=== PATIENT | male | born 1995 | race Caucasian/White ===

== ENCOUNTER 2019-05-01 19:59 | Emergency (ER) | payer BC, OTHER ==
[2019-05-01 20:27] LABS: Urine Blood NEGATIVE (NEG); Urine Glucose NEGATIVE (NEG); Urine Protein NEGATIVE (NEG); Urine Specific Gravity >1.030 (1.005-1.030)
[2019-05-01 20:45] LABS: Urine Bacteria <20 /HPF (NONE SEEN); Urine Mucus 1+ /HPF (NONE SEEN); Urine RBC <5 /HPF (NONE SEEN)
[2019-05-01] MEDS ORDERED: AZITHROMYCIN 250 MG TAB ONE (22:34)
[2019-05-01] MEDS ORDERED: LIDOCAINE 1% MPF 2 ML AMPULE ONE (22:34)
--- NOTE | 2019-05-01 22:34 | ER ---
Nurse's Notes [facility] Name: Jun Almaraz Age: 23 yrs Sex: Male : 1995 Arrival Date: 05/01/2019 Time: 20:04 Bed 14 Private MD: Diagnosis: Epididymitis Presentation: 04/30 20:14 Chief complaint: Patient states: Right testicular pain and discharges started wh yesterday. Pt states sharp pain radiating to groin area. Pt denies any associated symptoms like fever, nausea or vomiting. Coronavirus screen: Patient denies fever greater than 100.4F, cough, shortness of breath, or difficulty breathing. Proceed with normal triage process. Ebola Screen: Patient negative for fever greater than or equal to 101.5 degrees Fahrenheit, and additional compatible Ebola Virus Disease symptoms Patient denies exposure to infectious person. Initial Sepsis Screen: Does the patient meet any 2 criteria? HR > 90 bpm. Does the patient have a suspected source of infection? No. Patient's initial sepsis screen is negative. Risk Assessment: Do you want to hurt yourself or someone else? Patient reports no desire to harm self or others. 20:14 Method Of Arrival: Ambulatory 20:14 Acuity: LISA 4 20:18 Onset of symptoms was April 30, 2019. Historical: - Allergies: 20:17 No Known Allergies; - Home Meds: 20:17 None [Active]; - PMHx: 20:17 None; - PSHx: 20:17 None; - Immunization history:: Adult Immunizations not up to date. - Social history:: Smoking status: Patient reports the use of cigarette tobacco products, denies chronic smoking, but will smoke occasionally. Screenin:17 Abuse screen: Denies threats or abuse. Denies injuries from another. Nutritional screening: No deficits noted. Tuberculosis screening: No symptoms or risk factors identified. Fall Risk None identified. Assessment: 20:22 General: Appears in no apparent distress. Behavior is calm, cooperative, appropriate for age. Pain: Complains of pain in right testicular pain Pain does not radiate. Pain currently is 8 out of 10 on a pain scale. Quality of pain is described as aching, Pain began 1 day ago. Neuro: Level of Consciousness is awake, alert, obeys commands, Oriented to person, place, time, situation, Appropriate for age. Cardiovascular: Capillary refill < 3 seconds. Respiratory: Airway is patent Respiratory effort is even, unlabored, Respiratory pattern is regular, symmetrical. GI: Abdomen is flat, non-distended. : Reports discharge, pain in right scrotum. EENT: No signs and/or symptoms were reported regarding the EENT system. Derm: Skin is intact, is healthy with good turgor, Skin is pink, warm \T\ dry. normal. Musculoskeletal: Circulation, motion, and sensation intact. 21:24 Reassessment: Patient appears in no apparent distress at this time. No changes from rr5 previously documented assessment. Patient is alert, oriented x 3, equal unlabored respirations, skin warm/dry/pink. ultrasound at bedside. 22:50 Reassessment: Patient appears in no apparent distress at this time. Patient is alert, rr5 oriented x 3, equal unlabored respirations, skin warm/dry/pink. discharge instruction given and explained without complaints made. Vital Signs: 20:14 BP 158 / 110; Pulse 129; Resp 18; Temp 99.4; Pulse Ox 100% ; Weight 58.97 kg; Height 5 wh ft. 6 in. (167.64 cm); Pain 8/10; 21:20 BP 137 / 94; Pulse 118; Resp 19; Pulse Ox 98% ; rr5 22:40 BP 121 / 75; Pulse 102; Resp 18; Temp 97.9; Pulse Ox 99% on R/A; rr5 20:14 Body Mass Index 20.98 (58.97 kg, 167.64 cm) ED Course: 20:04 Patient arrived in ED. es 20:08 Tommy Sharpe NP is PHCP. pm1 20:08 Arthur Spann MD is Attending Physician. pm1 20:11 Jordan Alarcon, DAKOTA is Primary Nurse. rr5 20:17 Triage completed. wh 20:18 Patient has correct armband on for positive identification. Bed in low position. Call light in reach. Side rails up X 1. Pulse ox on. NIBP on. 20:18 Arm band placed on right wrist. wh 21:28 US Scrotum Testicles In Process Unspecified. EDMS 22:51 No provider procedures requiring assistance completed. Patient did not have IV access rr5 during this emergency room visit. Administered Medications: 22:27 Drug: Zithromax 1 grams Route: PO; rr5 22:50 Follow up: Response: No adverse reaction rr5 22:27 Drug: Tylenol #3 (300 mg-30 mg) 1 tablet {Note: rass 0.} Route: PO; rr5 22:50 Follow up: Response: No adverse reaction; Pain is decreased; RASS: Alert and Calm (0) rr5 22:28 Drug: Rocephin (cefTRIAXone) 250 mg Route: IM; Site: right gluteus; rr5 22:50 Follow up: Response: No adverse reaction rr5 22:46 CANCELLED (Other Intervention Used): Tylenol #3 (300 mg-30 mg) 2 tabs PO once; RASS on rr5 ADMIN: Combtv4, Very Agttd3, Agttd2, Rstlss1, AlertClm0, Drwsy-1, Lt Sdtn-2, Mod Sdtn-3, Dp Sdtn-4, UnArsble-5 Outcome: 22:34 Discharge ordered by MD. pm1 22:51 Discharged to home ambulatory. rr5 22:51 Condition: stable 22:51 Discharge instructions given to patient, Instructed on discharge instructions, Demonstrated understanding of instructions, follow-up care, medications. 22:52 Patient left the ED. rr5 Signatures: Dispatcher [employer] Patricia Cruz Patrick, RUSSIAN HISTORY PROFESSOR RUSSIAN HISTORY PROFESSOR pm1 Bhumi Stock Raymond, RN RN rr5 Corrections: (The following items were deleted from the chart) 20:18 20:14 BP 158 / 110; Pulse 129bpm; Resp 18bpm; Pulse Ox 100%; Temp 98.9F; 58.97 kg; wh Height 5 ft. 6 in.; BMI: 20.9; Pain 8/10; wh
--- NOTE | 2019-05-01 22:34 | EDPHYS ---
Physician Documentation [facility] Name: Jun Almaraz Age: 23 yrs Sex: Male : 1995 Arrival Date: 05/01/2019 Time: 20:04 Bed 14 Private MD: MARIA DEL CARMEN Physician Arthur Spann HPI: 04/30 20:20 This 23 yrs old Male presents to ER via Ambulatory with complaints of Groin pm1 Pain. 20:20 The patient presents with scrotal pain, in the area of the epidydimis. pm1 20:20 Onset: The symptoms/episode began/occurred yesterday. Modifying factors: The symptoms pm1 are alleviated by remaining still, sitting, the symptoms are aggravated by standing up. Associated signs and symptoms: Pertinent positives: whitish penile discharge yesterday. None today. No burning with urination, Pertinent negatives: abdominal pain, fever. Severity of symptoms: in the emergency department the symptoms have improved. The patient has not experienced similar symptoms in the past. The patient has not recently seen a physician. No trauma. Historical: - Allergies: 20:17 No Known Allergies; - Home Meds: 20:17 None [Active]; - PMHx: 20:17 None; - PSHx: 20:17 None; - Immunization history:: Adult Immunizations not up to date. - Social history:: Smoking status: Patient reports the use of cigarette tobacco products, denies chronic smoking, but will smoke occasionally. ROS: 20:20 Constitutional: Negative for fever, chills, and weight loss, Neck: Negative for injury, pm1 pain, and swelling, Cardiovascular: Negative for chest pain, palpitations, and edema, Respiratory: Negative for shortness of breath, cough, wheezing, and pleuritic chest pain, Abdomen/GI: Negative for abdominal pain, nausea, vomiting, diarrhea, and constipation, Back: Negative for injury and pain. 20:20 MS/Extremity: Negative for injury and deformity, Skin: Negative for injury, rash, and discoloration. 20:20 Neuro: Negative for headache, weakness, numbness, tingling, and seizure. 20:20 : Positive for penile discharge, testicular pain Negative for burning with urination, penile pain. Exam: 20:20 Constitutional: This is a well developed, well nourished patient who is awake, alert, pm1 and in no acute distress. Head/Face: Normocephalic, atraumatic. Chest/axilla: Normal chest wall appearance and motion. Nontender with no deformity. No lesions are appreciated. Cardiovascular: Regular rate and rhythm with a normal S1 and S2. No gallops, murmurs, or rubs. Normal PMI, no JVD. No pulse deficits. Respiratory: Lungs have equal breath sounds bilaterally, clear to auscultation and percussion. No rales, rhonchi or wheezes noted. No increased work of breathing, no retractions or nasal flaring. 20:20 Back: No spinal tenderness. No costovertebral tenderness. Full range of motion. 20:20 Abdomen/GI: Inspection: abdomen appears normal, Bowel sounds: normal, Palpation: abdomen is soft and non-tender, in all quadrants, mass, is not appreciated, rebound tenderness, is not appreciated. 20:20 : Male external genitalia: Circumcision noted. tenderness, of the scrotum is noted, of the epididymis area, that is mild. Vital Signs: 20:14 BP 158 / 110; Pulse 129; Resp 18; Temp 99.4; Pulse Ox 100% ; Weight 58.97 kg; Height 5 wh ft. 6 in. (167.64 cm); Pain 8/10; 21:20 BP 137 / 94; Pulse 118; Resp 19; Pulse Ox 98% ; rr5 22:40 BP 121 / 75; Pulse 102; Resp 18; Temp 97.9; Pulse Ox 99% on R/A; rr5 20:14 Body Mass Index 20.98 (58.97 kg, 167.64 cm) MDM: 20:08 Patient medically screened. pm1 22:33 Data reviewed: vital signs. Data interpreted: Pulse oximetry: on room air is 98 %. pm1 Interpretation: normal. Counseling: I had a detailed discussion with the patient and/or guardian regarding: the historical points, exam findings, and any diagnostic results supporting the discharge/admit diagnosis, lab results, radiology results, the need for outpatient follow up, for definitive care, a urologist, to return to the emergency department if symptoms worsen or persist or if there are any questions or concerns that arise at home. 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 No patient prescription data exists. pm1 04/30 20:20 Order name: Urine Microscopic Only; Complete Time: 20:46 pm1 04/30 20:26 Order name: Urine Dipstick--Ancillary (enter results); Complete Time: 20:46 mw2 04/30 20:20 Order name: US Scrotum Testicles pm1 04/30 20:20 Order name: Urine Dipstick-Ancillary (obtain specimen); Complete Time: 20:25 pm1 Administered Medications: 22:27 Drug: Zithromax 1 grams Route: PO; rr5 22:50 Follow up: Response: No adverse reaction rr5 22:27 Drug: Tylenol #3 (300 mg-30 mg) 1 tablet {Note: rass 0.} Route: PO; rr5 22:50 Follow up: Response: No adverse reaction; Pain is decreased; RASS: Alert and Calm (0) rr5 22:28 Drug: Rocephin (cefTRIAXone) 250 mg Route: IM; Site: right gluteus; rr5 22:50 Follow up: Response: No adverse reaction rr5 22:46 CANCELLED (Other Intervention Used): Tylenol #3 (300 mg-30 mg) 2 tabs PO once; RASS on rr5 ADMIN: Combtv4, Very Agttd3, Agttd2, Rstlss1, AlertClm0, Drwsy-1, Lt Sdtn-2, Mod Sdtn-3, Dp Sdtn-4, UnArsble-5 Disposition: 05/01 18:05 Co-signature as Attending Physician, Arthur Spann MD I agree with the assessment and galo plan of care. Disposition: 05/01/19 22:34 Discharged to Home. Impression: Epididymitis. - Condition is Stable. - Discharge Instructions: Epididymitis, Scrotal Masses, Testicular Self-Exam, Luov-es-Syrp. - Prescriptions for Tylenol- Codeine #3 300-30 mg Oral Tablet - take 2 tablets by ORAL route every 6 hours As needed; 20 tablet. - Medication Reconciliation Form, Thank You Letter, Antibiotic Education, Prescription Opioid Use form. - Follow up: Emergency Department; When: As needed; Reason: Worsening of condition. Follow up: Private Physician; When: 2 - 3 days; Reason: Recheck today's complaints, Continuance of care, Re-evaluation by your physician. - Problem is new. - Symptoms have improved. Signatures: Dispatcher [employer] EDArthur Osman MD MD cha Marinas, Patrick, RIVET SORTER RIVET SORTER pm1 Bhumi Stock Raymond, RN RN rr5 Corrections: (The following items were deleted from the chart) 04/30 22:46 22:26 Tylenol #3 (300 mg-30 mg) 2 tabs PO once; RASS on ADMIN: Combtv4, Very Agttd3, rr5 Agttd2, Rstlss1, AlertClm0, Drwsy-1, Lt Sdtn-2, Mod Sdtn-3, Dp Sdtn-4, UnArsble-5 ordered. pm1 22:52 22:34 05/01/2019 22:34 Discharged to Home. Impression: Epididymitis. Condition is rr5 Stable. Forms are Medication Reconciliation Form, Thank You Letter, Antibiotic Education, Prescription Opioid Use. Follow up: Emergency Department; When: As needed; Reason: Worsening of condition. Follow up: Private Physician; When: 2 - 3 days; Reason: Recheck today's complaints, Continuance of care, Re-evaluation by your physician. Problem is new. Symptoms have improved. pm1
[2019-05-01] MEDS ORDERED: CODEINE 30MG/APAP 300MG TAB ONE (22:35)
[2019-05-01] MEDS ORDERED: CEFTRIAXONE 250 MG/VIAL ONE (22:35)
[2019-05-01 23:04] VITALS: BP 121/75; TEMP 97.9; O2SAT 99
--- NOTE | 2019-05-02 20:57 | RAD REPORT ---
EXAM DESCRIPTION: US - Scrotum Testicles - 05/01/2019 9:28 pm CLINICAL HISTORY: 23 years Male Scrotal pain TECHNIQUE: Ultrasound of the scrotum was done utilizing grayscale and color Doppler imaging. COMPARISON: No prior exams provided for comparison. FINDINGS: Both testicles are normal in size without focal abnormality. The right testicle measures 3 .5 x 1.8 x 2.9 cm while the left measures 4.6 x 1.9 x 3.0 cm. The epididymi appear normal bilaterally. Color doppler demonstrates normal vascularity in both testic les and epididymi. There is no evidence of varicocele or abnormal extratesticular fluid. IMPRESSION: Normal scrotal ultrasound. No testicular torsion, focal lesion, or abnormal hyperemia. Electronically signed by: Diana Aden MD 05/02/2019 12:15 AM CDT Due to temporary technical issues with the PACS/Fluency reporting system, reports are being signed by the in house radiologist as a courtesy to ensure prompt reporting. The interpreting radiologist is f ully responsible for the content of the report.
== END 2019-05-01 22:52 | disposition home or self-care (01) ==
LOC: ER 19:59
DX: N45.1 Epididymitis (principal); F17.210 Nicotine dependence, cigarettes, uncomplicated
CPT/HCPCS: 76870; 96372; 99283; J2001; J0696; 81003; 81015

== ENCOUNTER 2019-05-07 19:22 | Emergency (ER) | payer BC ==
[2019-05-07 20:17] LABS: Urine Blood NEGATIVE (NEG); Urine Glucose NEGATIVE (NEG); Urine Protein NEGATIVE (NEG)
--- NOTE | 2019-05-07 20:18 | RAD REPORT ---
EXAM DESCRIPTION: CT - Stone Protocol - 05/07/2019 8:06 pm CLINICAL HISTORY: Abdominal pain. Groin pain COMPARISON: None. TECHNIQUE: Computed axial tomography of the abdomen pelvis was obtained without oral or IV contrast. Lack of IV and oral contrast limits evaluation of solid organs, bowel, and vessels. Coronal reformat lala images were obtained and reviewed. All CT scans are performed using dose optimization technique as appropriate and may include automated exposure control or mA/KV adjustment according to patient size. FINDINGS: A renal calculus is not seen. An ureteral calculus is not noted. A bladder calculus is not present. The liver, spleen, pancreas and adrenals appear grossly normal There is no evidence of diverticulitis. The appendix appears normal An inguinal hernia is not seen The stomach is mildly distended. Moderate amount stool is present throughout the colon IMPRESSION: Negative for a genitourinary calculus Stomach is mildly distended
[2019-05-07 20:23] LABS: Urine Bacteria <20 /HPF (NONE SEEN); Urine Culture Reflex Order NOT NEEDED; Urine Mucus 1+ /HPF (NONE SEEN); Urine RBC <5 /HPF (NONE SEEN)
--- NOTE | 2019-05-07 21:07 | ER ---
Nurse's Notes [facility] Name: Jun Almaraz Age: 23 yrs Sex: Male : 1995 Arrival Date: 05/07/2019 Time: 19:25 Bed 17 Private MD: Diagnosis: Urethritis and urethral syndrome Presentation: 05/06 19:32 Chief complaint: Patient states: penile issues, same as Friday. I cant follow up with a pcp, the pain is slightly better but i think I need an antibitotic. Coronavirus screen: Patient denies fever greater than 100.4F, cough, shortness of breath, or difficulty breathing. Ebola Screen: Patient negative for fever greater than or equal to 101.5 degrees Fahrenheit, and additional compatible Ebola Virus Disease symptoms Patient denies exposure to infectious person. Patient denies travel to an Ebola-affected area in the 21 days before illness onset. No symptoms or risks identified at this time. Initial Sepsis Screen: Does the patient meet any 2 criteria? No. Patient's initial sepsis screen is negative. Does the patient have a suspected source of infection? No. Patient's initial sepsis screen is negative. Risk Assessment: Do you want to hurt yourself or someone else? Patient reports no desire to harm self or others. 19:32 Method Of Arrival: Ambulatory 19:32 Acuity: LISA 4 19:57 Onset of symptoms was April 29, 2019. ae4 Triage Assessment: 19:34 General: Appears in no apparent distress. uncomfortable, Behavior is cooperative, ch appropriate for age. Pain: Complains of pain in pelvis. Historical: - Allergies: 19:34 No Known Allergies; - Home Meds: 19:34 Tylenol #3 Oral [Active]; - PSHx: 19:34 None; - Immunization history:: Adult Immunizations up to date, Flu vaccine is not up to date. - Social history:: Smoking status: Patient reports the use of cigarette tobacco products. Screenin:57 Abuse screen: Denies threats or abuse. Nutritional screening: No deficits noted. ae4 Tuberculosis screening: No symptoms or risk factors identified. Fall Risk None identified. Assessment: 19:47 General: Appears in no apparent distress. uncomfortable, slender, Behavior is ae4 cooperative, anxious. Pain: Complains of pain in suprapubic area. Neuro: Level of Consciousness is awake, alert, obeys commands, Oriented to person, place, time, situation, Appropriate for age. Cardiovascular: Patient's skin is warm and dry. Respiratory: Airway is patent Respiratory effort is even, unlabored, Respiratory pattern is regular, symmetrical. GI: No signs and/or symptoms were reported involving the gastrointestinal system. Patient currently denies diarrhea, nausea. : Reports discharge, white, Denies burning with urination. EENT: No signs and/or symptoms were reported regarding the EENT system. Derm: Skin is pink, warm \T\ dry. Musculoskeletal: No signs and/or symptoms reported regarding the musculoskeletal system. Vital Signs: 19:32 BP 159 / 101; Pulse 100; Resp 16; Temp 98.3; Pulse Ox 100% on R/A; Weight 58.97 kg; ch Height 5 ft. 6 in. (167.64 cm); Pain 8/10; 20:41 BP 122 / 79; Pulse 94; Resp 18; Pulse Ox 100% on R/A; ae4 19:32 Body Mass Index 20.98 (58.97 kg, 167.64 cm) ED Course: 19:25 Patient arrived in ED. cl3 19:29 Luc Wood, [place] is Primary Nurse. ae4 19:33 Triage completed. 19:34 Arm band placed on left wrist. Patient placed in an exam room, on a stretcher. 19:48 Ericka Perez FNP-C is [facility]. 19:48 Guicho Reyna MD is Attending Physician. kb 19:56 Bed in low position. Call light in reach. Side rails up X 1. Pulse ox on. ae4 20:07 CT Stone Protocol In Process Unspecified. EDMS 21:15 No provider procedures requiring assistance completed. Patient did not have IV access ae4 during this emergency room visit. Administered Medications: No medications were administered Outcome: 21:07 Discharge ordered by . kb 21:15 Discharged to home ambulatory. ae4 21:15 Condition: stable 21:15 Discharge instructions given to patient, Instructed on discharge instructions, follow up and referral plans. medication usage, Demonstrated understanding of instructions, Prescriptions given X 1. 21:16 Patient left the ED. ae4 Signatures: Dispatcher [employer] EDLA Ericka Perez FNP-C FNP-Dariusb Beryl Ruiz, RN RN ch Luc Wood RN RN ae4 Nikki Pineda cl3
--- NOTE | 2019-05-07 21:07 | EDPHYS ---
Physician Documentation [facility] Name: Jun Almaraz Age: 23 yrs Sex: Male : 1995 Arrival Date: 05/07/2019 Time: 19:25 Bed 17 Private MD: ED Physician Guicho Reyna HPI: 05/06 20:55 This 23 yrs old Male presents to ER via Ambulatory with complaints of Penile kb Pain. 20:55 The patient presents with symptoms include purulent penile discharge, tenderness, that kb is mild, of the right inguinal area. Onset: The symptoms/episode began/occurred 1 week(s) ago. Modifying factors: The symptoms are alleviated by nothing, the symptoms are aggravated by nothing. Associated signs and symptoms: The patient has no apparent associated signs or symptoms. Severity of symptoms: At their worst the symptoms were mild, in the emergency department the symptoms are unchanged. The patient has not experienced similar symptoms in the past. The patient has been recently seen at the [facility] Emergency Department, this week, for similar complaints. Pt reports he was seen last week and given 4 pills and a shot. States he felt a little better, but the symptoms came back. Reports penile drainage intermittently. Denies dysuria, testicular pain. . Historical: - Allergies: 19:34 No Known Allergies; ch - Home Meds: 19:34 Tylenol #3 Oral [Active]; ch - PSHx: 19:34 None; ch - Immunization history:: Adult Immunizations up to date, Flu vaccine is not up to date. - Social history:: Smoking status: Patient reports the use of cigarette tobacco products. ROS: 20:49 Constitutional: Negative for fever, chills, and weight loss, ENT: Negative for injury, kb pain, and discharge, Neck: Negative for injury, pain, and swelling, Cardiovascular: Negative for chest pain, palpitations, and edema, Respiratory: Negative for shortness of breath, cough, wheezing, and pleuritic chest pain, Abdomen/GI: Negative for abdominal pain, nausea, vomiting, diarrhea, and constipation, MS/Extremity: Negative for injury and deformity, Skin: Negative for injury, rash, and discoloration, Neuro: Negative for headache, weakness, numbness, tingling, and seizure. 20:49 : Positive for penile discharge, Negative for burning with urination, penile pain, testicular pain Exam: 20:52 Constitutional: This is a well developed, well nourished patient who is awake, alert, kb and in no acute distress. Head/Face: Normocephalic, atraumatic. ENT: Nares patent. No nasal discharge, no septal abnormalities noted. Tympanic membranes are normal and external auditory canals are clear. Oropharynx with no redness, swelling, or masses, exudates, or evidence of obstruction, uvula midline. Mucous membranes moist. Neck: Trachea midline, no thyromegaly or masses palpated, and no cervical lymphadenopathy. Supple, full range of motion without nuchal rigidity, or vertebral point tenderness. No Meningismus. Chest/axilla: Normal chest wall appearance and motion. Nontender with no deformity. No lesions are appreciated. Cardiovascular: Regular rate and rhythm with a normal S1 and S2. No gallops, murmurs, or rubs. Normal PMI, no JVD. No pulse deficits. Respiratory: Lungs have equal breath sounds bilaterally, clear to auscultation and percussion. No rales, rhonchi or wheezes noted. No increased work of breathing, no retractions or nasal flaring. Back: No spinal tenderness. No costovertebral tenderness. Full range of motion. Skin: Warm, dry with normal turgor. Normal color with no rashes, no lesions, and no evidence of cellulitis. MS/ Extremity: Pulses equal, no cyanosis. Neurovascular intact. Full, normal range of motion. Neuro: Awake and alert, GCS 15, oriented to person, place, time, and situation. Cranial nerves II-XII grossly intact. Motor strength 5/5 in all extremities. Sensory grossly intact. Cerebellar exam normal. Normal gait. 20:52 Abdomen/GI: Inspection: abdomen appears normal, Bowel sounds: normal, in all quadrants, Palpation: mild tenderness to right groin area. 20:54 : no testicular pain. kb Vital Signs: 19:32 BP 159 / 101; Pulse 100; Resp 16; Temp 98.3; Pulse Ox 100% on R/A; Weight 58.97 kg; ch Height 5 ft. 6 in. (167.64 cm); Pain 8/10; 20:41 BP 122 / 79; Pulse 94; Resp 18; Pulse Ox 100% on R/A; ae4 19:32 Body Mass Index 20.98 (58.97 kg, 167.64 cm) MDM: 19:48 Patient medically screened. kb 20:48 Data reviewed: vital signs, nurses notes. Data interpreted: Pulse oximetry: on room air kb is 100 %. Interpretation: normal. Counseling: I had a detailed discussion with the patient and/or guardian regarding: the historical points, exam findings, and any diagnostic results supporting the discharge/admit diagnosis, lab results, radiology results, the need for outpatient follow up, a family practitioner, to return to the emergency department if symptoms worsen or persist or if there are any questions or concerns that arise at home. 20:54 Data reviewed: old medical records, Testicular US done 6 days ago and was normal. Pt kb denies testicular pain. 05/06 19:52 Order name: Urine Microscopic Only; Complete Time: 20:24 kb 05/06 20:11 Order name: Urine Dipstick--Ancillary (enter results); Complete Time: 20:19 cm6 05/06 19:52 Order name: CT Stone Protocol; Complete Time: 20:20 kb 05/06 19:52 Order name: Urine Dipstick-Ancillary (obtain specimen); Complete Time: 19:58 kb Administered Medications: No medications were administered Disposition: 05/07 02:09 Co-signature as Attending Physician, Guicho Reyna MD. ma2 Disposition: 05/07/19 21:07 Discharged to Home. Impression: Urethritis and urethral syndrome. - Condition is Stable. - Discharge Instructions: Urethritis, Adult. - Prescriptions for Doxycycline Hyclate 100 mg Oral Tablet - take 1 tablet by ORAL route every 12 hours; 20 tablet. - Medication Reconciliation Form, Thank You Letter, Antibiotic Education, Prescription Opioid Use form. - Follow up: Emergency Department; When: As needed; Reason: Worsening of condition. Follow up: Private Physician; When: 2 - 3 days; Reason: Recheck today's complaints, Continuance of care, Re-evaluation by your physician. Signatures: Dispatcher [employer] Ericka Linares, Beryl Guerin RN RN Guicho Reyna MD MD ma2 Luc Wood RN RN ae4 Corrections: (The following items were deleted from the chart) 05/06 20:52 20:49 : Positive for penile discharge, kb kb 21:16 21:07 05/07/2019 21:07 Discharged to Home. Impression: Urethritis and urethral ae4 syndrome. Condition is Stable. Forms are Medication Reconciliation Form, Thank You Letter, Antibiotic Education, Prescription Opioid Use. Follow up: Emergency Department; When: As needed; Reason: Worsening of condition. Follow up: Private Physician; When: 2 - 3 days; Reason: Recheck today's complaints, Continuance of care, Re-evaluation by your physician. kb
[2019-05-07 21:30] VITALS: TEMP 98.3; O2SAT 100
[2019-05-07 21:31] VITALS: BP 122/79
== END 2019-05-07 21:16 | disposition home or self-care (01) ==
LOC: ER 19:22
DX: N34.2 Other urethritis (principal)
CPT/HCPCS: 74176; 76377; 81003; 81015; 99283

== ENCOUNTER 2024-01-03 19:22 | Emergency (ER) | payer BC, OTHER, SELFPAY ==
[2024-01-03] MEDS ORDERED: NA CHLORIDE 0.9% 1,000 ML ONE (19:35)
[2024-01-03 19:43] LABS: Absolute Lymphocytes (CBC) 0.9 K/uL (0.7-4.9); Absolute Monocytes 0.9 K/uL (0.1-1.3); Absolute Neutrophil 16.1 K/uL (1.8-8.0); Basophils % 0.2 % (0-1.3); Eosinophils % 0.2 % (0-4.4); Hematocrit 50.3 % (39.6-49.0); Hemoglobin 16.8 g/dL (13.6-17.9); Lymphocytes % 5.1 % (15.3-44.8); MCH 29.9 pg (27.0-35.0); MCHC 33.3 g/dL (32.0-36.0); MCV 89.7 fL (80-100); Monocytes % 5.1 % (3.3-12.3); Neutrophils % 89.4 % (41.7-73.7); Nucleated Red Blood Cells % 0.1 % (0-0); Platelets 310 thou/uL (152-406); RBC Red Blood Cell Count 5.61 M/uL (4.33-5.43); Red Cell Distribution Width 13.6 % (12.1-15.2)
[2024-01-03 20:00] LABS: Albumin 4.6 g/dL (3.4-5.0); Albumin/Globulin Ratio 1.2 (1.1-1.8); Anion Gap 8.9 mEq/L (5.0-15.0); Bilirubin Total 0.4 mg/dL (0.2-1.0); Globulin 3.9 g/dL (2.3-3.5); Potassium 3.9 mEq/L (3.5-5.1); Protein, Total 8.5 g/dL (6.4-8.2)
[2024-01-03 20:26] LABS: Band Neutrophils 2 % (0-1); Differential Total Cells Count 100; Lymphocytes 10 % (15-42); Monocytes 3 % (0-10); Segmented Neutrophils 85 % (40-80)
[2024-01-03 20:28] LABS: Blood Morphology Comment NOT SEEN (NOT SEEN); Platelet Estimate ADEQ
[2024-01-03 21:06] LABS: SARS-CoV-2 Antigen CONTROL BLUE LINE VIS/BG OK; SARS-CoV-2 Antigen Rapid Res Negative (Negative)
--- NOTE | 2024-01-03 21:37 | RAD REPORT ---
EXAMINATION: CT Abdomen Pelvis W Contrast CLINICAL INDICATION: Male, 28 years old. n/v/d;Abd pain TECHNIQUE: CT abdomen and pelvis was performed, after the administration of IV contrast, as per [facility] protocol. Axial, sagittal and coronal reconstructions were obtained. One or more of the following dose reduction techniques were used: Automated exposure control, adjustment of the mA and k V according to patient size, and iterative reconstruction. Unless otherwise specified, incidental findings do not require dedicated imaging follow-up. COMPARISON: 05/07/2019 FINDINGS: LOWER CHEST: The visualized lung bases are clear. LIVER: Normal in size and contour. No focal lesion. BILIARY SYSTEM: No suspicious abnormalities. SPLEEN: Normal size. No focal lesion. PANCREAS: No mass, ductal dilation, or gabriela-pancreatic fluid. ADRENALS: Normal; no mass. KIDNEYS: Normal size and contour. No hydronephrosis. URINARY BLADDER: Unremarkable. GASTROINTESTINAL TRACT: No evidence of free air, significant intra-abdominal free fluid, bowel obstru ction or abscess. Long segment mild wall prominence involving most of the transverse and descending colon, may relate to underdistention or mild colitis. APPENDIX: Normal appendix. LYMPH NODES: No lymphadenopathy. MUSCULOSKELETAL: No acute or suspicious osseous abnormality. ADDITIONAL FINDINGS: None. IMPRESSION: Long segment mild wall prominence involving most of the transverse and descending colon, may relate t o underdistention or mild colitis. No other acute or concerning abnormalities seen in the abdomen or pelvis.
[2024-01-03] MEDS ORDERED: METRONIDAZOLE 500mg IVPB 500 MG/100 ML BAG IV ONE (22:06)
[2024-01-03] MEDS ORDERED: CEFTRIAXONE 1000 MG/VIAL ONE (22:06)
[2024-01-03 22:23] LABS: PT Prothrombin Time 11.2 SECONDS (9.4-12.5)
--- NOTE | 2024-01-03 22:42 | ER ---
Nurse's Notes [facility] Name: Jun Almaraz Age: 28 yrs Sex: Male : 1995 Arrival Date: 01/03/2024 Time: 19:22 Bed 7 Private MD: Diagnosis: Infectious gastroenteritis and colitis, unspecified Presentation: 01/02 19:25 Chief complaint: Patient states: I think I may have food poisoning. I have NVD for 12 bm8 hours. Coronavirus screen: At this time, the client does not indicate any symptoms associated with coronavirus-19. Ebola Screen: Patient negative for fever greater than or equal to 101.5 degrees Fahrenheit, and additional compatible Ebola Virus Disease symptoms Patient denies exposure to infectious person. Patient denies travel to an Ebola-affected area in the 21 days before illness onset. No symptoms or risks identified at this time. Initial Sepsis Screen: Does the patient meet any 2 criteria? No. Patient's initial sepsis screen is negative. Does the patient have a suspected source of infection? No. Patient's initial sepsis screen is negative. Risk Assessment: Do you want to hurt yourself or someone else? Patient reports no desire to harm self or others. Onset of symptoms was January 03, 2024 at 07:00. 19:25 Method Of Arrival: EMS: [facility] bm8 19:25 Acuity: LISA 3 bm8 19:54 Care prior to arrival: Medication(s) given: Reglan 10mg IV IV initiated. 20 GA, in the bm8 right antecubital area. Triage Assessment: 19:27 General: Appears in no apparent distress. comfortable, Behavior is calm, cooperative, bm8 appropriate for age. Pain: Complains of pain in abdomen. EENT: No deficits noted. No signs and/or symptoms were reported regarding the EENT system. Neuro: No deficits noted. Level of Consciousness is awake, alert, obeys commands, Oriented to person, place, time, situation, Appropriate for age. Cardiovascular: No deficits noted. Denies chest pain, Heart tones S1 S2 present. Respiratory: Airway is patent Respiratory effort is even, unlabored, Respiratory pattern is regular, symmetrical, Breath sounds are clear bilaterally. GI: Abdomen is flat, non-distended, Bowel sounds present X 4 quads. Reports lower abdominal pain, upper abdominal pain, diarrhea, nausea, Pain is 3 out of 10 on a pain scale. vomiting, since 0700. : No signs and/or symptoms were reported regarding the genitourinary system. Derm: No signs and/or symptoms reported regarding the dermatologic system. Musculoskeletal: No signs and/or symptoms reported regarding the musculoskeletal system. Historical: - Allergies: 19:27 No Known Allergies; bm8 - PMHx: 19:27 None; bm8 - PSHx: 19:27 None; bm8 - Immunization history:: Adult Immunizations up to date. - Infectious Disease History:: Denies. - Social history:: Smoking status: Patient denies any tobacco usage or history of. Patient uses street drugs, marijuana, Patient/guardian denies using alcohol. Screenin:30 [facility] ED Fall Risk Assessment (Adult) History of falling in the last 3 months, bm8 including since admission No falls in past 3 months (0 pts) Confusion or Disorientation No (0 pts) Intoxicated or Sedated No (0 pts) Impaired Gait No (0 pts) Mobility Assist Device Used No (0 pt) Altered Elimination No (0 pt) Score/Fall Risk Level 0 - 2 = Low Risk Oriented to surroundings, Maintained a safe environment, Educated pt \T\ family on fall prevention, incl call for assistance when getting out of bed, Assessed \T\ reinforced patient's understanding of fall precautions, Hourly rounding (assess needs \T\ fall precautionary measures) done, Used ambulatory aids as needed (educated on \T\ assisted with), Used gait belt as appropriate. Abuse screen: Denies threats or abuse. Nutritional screening: No deficits noted. Tuberculosis screening: No symptoms or risk factors identified. Assessment: 19:30 Reassessment: see triage assessment. bm8 20:34 Reassessment: Patient appears in no apparent distress at this time. Patient and/or bm8 family updated on plan of care and expected duration. Pain level reassessed. Patient is alert, oriented x 3, equal unlabored respirations, skin warm/dry/pink. Patient states feeling better. Patient states symptoms have improved. GI: Abdomen is flat, non-distended, Bowel sounds present X 4 quads. Abd is soft and non tender Patient currently denies nausea, at this time. 22:24 Reassessment: Patient appears in no apparent distress at this time. Patient and/or bm8 family updated on plan of care and expected duration. Pain level reassessed. Patient is alert, oriented x 3, equal unlabored respirations, skin warm/dry/pink. Patient states feeling better. Patient states symptoms have improved. 23:05 Reassessment: Patient appears in no apparent distress at this time. Patient and/or bm8 family updated on plan of care and expected duration. Pain level reassessed. Patient is alert, oriented x 3, equal unlabored respirations, skin warm/dry/pink. Patient denies pain at this time. Patient states feeling better. Patient states symptoms have improved. Vital Signs: 19:25 BP 142 / 97; Pulse 84; Resp 17; Temp 99.1; Pulse Ox 100% ; Weight 61.23 kg; Height 5 bm8 ft. 6 in. ; Pain 3/10; 20:39 BP 137 / 86; Pulse 93; Resp 18; Temp 99.1; Pulse Ox 98% ; Pain 0/10; bm8 22:24 BP 136 / 91; Pulse 91; Resp 18; Temp 98.9; Pulse Ox 100% ; Pain 0/10; bm8 23:05 BP 118 / 76; Pulse 87; Resp 17; Temp 98.9; Pulse Ox 100% ; Pain 0/10; bm8 19:25 Body Mass Index 21.79 (61.23 kg, 167.64 cm) bm8 19:25 Pain Scale: Adult bm8 20:39 Pain Scale: Adult bm8 22:24 Pain Scale: Adult bm8 23:05 Pain Scale: Adult bm8 Roberta Coma Score: 19:30 Eye Response: spontaneous(4). Motor Response: obeys commands(6). Verbal Response: bm8 oriented(5). Total: 15. 20:39 Eye Response: spontaneous(4). Motor Response: obeys commands(6). Verbal Response: bm8 oriented(5). Total: 15. 22:24 Eye Response: spontaneous(4). Motor Response: obeys commands(6). Verbal Response: bm8 oriented(5). Total: 15. 23:05 Eye Response: spontaneous(4). Motor Response: obeys commands(6). Verbal Response: bm8 oriented(5). Total: 15. ED Course: 19:23 Patient arrived in ED. rv1 19:24 Jeffery Durant MD is Attending Physician. rt 19:25 Jun Mtz, RN is Primary Nurse. bm8 19:26 [facility] sb4 19:27 Triage completed. bm8 19:27 Arm band placed on right wrist. bm8 19:30 Patient has correct armband on for positive identification. Bed in low position. Call bm8 light in reach. Side rails up X2. Client placed on continuous cardiac and pulse oximetry monitoring. NIBP monitoring applied. Pulse ox on. NIBP on. Door closed. Noise minimized. Warm blanket given. Pillow given. Verbal reassurance given. Head of bed elevated. 19:30 No provider procedures requiring assistance completed. Initial lab(s) drawn, by ED bm8 staff, sent to lab. Maintain EMS IV. Dressing intact. Good blood return noted. Site clean \T\ dry. Gauge \T\ site: 20g RAC. Flushed with 10 mL NS. Patient maintains SpO2 saturation greater than 95% on room air. 19:38 CBC with Diff Sent. vk 19:38 CMP Sent. vk 19:38 Lipase Sent. vk 20:39 COVID swab sent to lab. Flu and/or RSV swab sent to lab. bm8 20:49 CT Abd/Pelvis - IV Contrast Only In Process Unspecified. EDMS 22:10 Inserted saline lock: 22 gauge in right hand, using aseptic technique. Blood collected. vk Flushed with 10 mL NS. 23:05 Provided Education on: post er care. bm8 23:05 IV discontinued, intact, bleeding controlled, No redness/swelling at site. Pressure bm8 dressing applied, x2. Administered Medications: 19:37 Drug: NS 0.9% IV 1000 ml IV at 1 bolus Per protocol; to be given as a bolus over 60 bm8 minutes Route: IV; Rate: 1 bolus; Site: right antecubital; 21:48 Follow up: Response: No adverse reaction; IV Status: Completed infusion; IV Intake: bm8 1000ml 22:23 Drug: metroNIDAZOLE IVPB 500 mg 100 ml IVPB at 200 ml/hr once over 30 mins Volume: 100 bm8 ml; Route: IVPB; Rate: 200 ml/hr; Infused Over: 30 mins; Site: right antecubital; 23:30 Follow up: Response: No adverse reaction; IV Status: Completed infusion; IV Intake: bm8 100ml 22:24 Drug: Rocephin IV 1 grams IV at calculated rate once; Given slow IV push per pharmacy bm8 instructions Route: IV; Rate: calculated rate; Site: right antecubital; 23:30 Follow up: Response: No adverse reaction; IV Status: Completed infusion; IV Intake: [id number] Medication: 19:30 VIS not applicable for this client. bm8 Intake: 21:48 IV: 1000ml; Total: 1000ml. bm8 23:30 IV: 100ml; Total: 1100ml. bm8 23:30 IV: 10ml; Total: 1110ml. bm8 Outcome: 22:42 Discharge ordered by . sb4 23:05 Discharged to home ambulatory, bm8 23:05 Condition: stable 23:05 Discharge instructions given to patient, Instructed on discharge instructions, follow up and referral plans. medication usage, safety practices, Demonstrated understanding of instructions, follow-up care, medications, Prescriptions given X 3, 23:08 Patient left the ED. bm8 Signatures: Dispatcher [employer] EDJustine Horton, PA-C PA-C sb4 Jeffery Durant MD MD rt Villegas, Rebecca rv1 Sharlene Smith Brad, RN RN bm8
--- NOTE | 2024-01-03 22:42 | EDPHYS ---
Physician Documentation [facility] Name: Jun Almaraz Age: 28 yrs Sex: Male : 1995 Arrival Date: 01/03/2024 Time: : Bed 7 Private MD: ED Physician Jeffery Durant HPI: 01/02 19:33 This 28 yrs old Male presents to ER via EMS with complaints of Nausea/Vomiting/Diarrhea.sb4 19:33 The patient presents to the emergency department with nausea, vomiting, diarrhea. sb4 Onset: The symptoms/episode began/occurred this morning. Possible causes: bad food exposure. The symptoms are aggravated by nothing. The symptoms are alleviated by nothing. Associated signs and symptoms: Pertinent negatives: fever, GI bleeding. Historical: - Allergies: 19:27 No Known Allergies; bm8 - PMHx: 19:27 None; bm8 - PSHx: 19:27 None; bm8 - Immunization history:: Adult Immunizations up to date. - Infectious Disease History:: Denies. - Social history:: Smoking status: Patient denies any tobacco usage or history of. Patient uses street drugs, marijuana, Patient/guardian denies using alcohol. ROS: 19:34 Constitutional: Negative for fever, chills, and weight loss, sb4 19:34 Abdomen/GI: Positive for nausea, vomiting, and diarrhea, 19:34 All other systems are negative, Exam: 19:34 Head/Face: Normocephalic, atraumatic. Eyes: Extra-ocular motions intact. Periorbital sb4 areas with no swelling, redness, or edema. ENT: Mucous membranes moist. Cardiovascular: Regular rate and rhythm with a normal S1 and S2. Respiratory: No increased work of breathing, no retractions or nasal flaring. Abdomen/GI: Soft, non-tender, no distension. Skin: Warm, dry with normal turgor. Normal color with no rashes, no lesions, and no evidence of cellulitis. 19:34 Constitutional: The patient appears alert, awake, pale, Vital Signs: 19:25 BP 142 / 97; Pulse 84; Resp 17; Temp 99.1; Pulse Ox 100% ; Weight 61.23 kg; Height 5 bm8 ft. 6 in. ; Pain 3/10; 20:39 BP 137 / 86; Pulse 93; Resp 18; Temp 99.1; Pulse Ox 98% ; Pain 0/10; bm8 22:24 BP 136 / 91; Pulse 91; Resp 18; Temp 98.9; Pulse Ox 100% ; Pain 0/10; bm8 23:05 BP 118 / 76; Pulse 87; Resp 17; Temp 98.9; Pulse Ox 100% ; Pain 0/10; bm8 19:25 Body Mass Index 21.79 (61.23 kg, 167.64 cm) bm8 19:25 Pain Scale: Adult bm8 20:39 Pain Scale: Adult bm8 22:24 Pain Scale: Adult bm8 23:05 Pain Scale: Adult bm8 Roberta Coma Score: 19:30 Eye Response: spontaneous(4). Motor Response: obeys commands(6). Verbal Response: bm8 oriented(5). Total: 15. 20:39 Eye Response: spontaneous(4). Motor Response: obeys commands(6). Verbal Response: bm8 oriented(5). Total: 15. 22:24 Eye Response: spontaneous(4). Motor Response: obeys commands(6). Verbal Response: bm8 oriented(5). Total: 15. 23:05 Eye Response: spontaneous(4). Motor Response: obeys commands(6). Verbal Response: bm8 oriented(5). Total: 15. MDM: 19:26 Medical Screening Exam initiated sb4 21:24 Data reviewed: vital signs, nurses notes, EMS record, lab test result(s), radiologic sb4 studies, and as a result, I will discharge patient. Counseling: I had a detailed discussion with the patient and/or guardian regarding the historical points, exam findings, and any diagnostic results supporting the discharge/admit diagnosis, the presence of at least one elevated blood pressure reading (>120/80) during this emergency department visit, lab results, radiology results, to return to the emergency department if symptoms worsen or persist or if there are any questions or concerns that arise at home. 22:00 Differential diagnosis: gastritis, cholecystitis, diverticulitis, gastroenteritis. sb4 01/02 19:26 Order name: CBC with Diff; Complete Time: 20:29 sb4 01/02 19:26 Order name: CMP; Complete Time: 20:02 sb4 01/02 19: Order name: Lipase; Complete Time: 20:02 sb4 01/02 19:50 Order name: Manual Differential; Complete Time: 20:29 EDMS 01/02 20:29 Order name: SARS RAPID; Complete Time: 21:08 4 01/02 20:29 Order name: Flu; Complete Time: 21:08 sb4 01/02 21:38 Order name: Blood Culture Adult (2) 4 01/02 21:38 Order name: Lactate w/ 2H reflex if indic.; Complete Time: 22:42 sb4 01/02 21:38 Order name: PT-INR; Complete Time: 22:24 sb4 01/02 21:38 Order name: Ptt, Activated; Complete Time: 22:24 4 01/02 20:25 Order name: CT Abd/Pelvis - IV Contrast Only; Complete Time: 21:38 4 01/02 19:26 Order name: IV Saline Lock; Complete Time: 19:31 sb4 01/02 19:26 Order name: Labs collected and sent; Complete Time: 19:31 [facility] 01/02 21:24 Order name: PO challenge; Complete Time: 21:48 sb4 Administered Medications: 19:37 Drug: NS 0.9% IV 1000 ml IV at 1 bolus Per protocol; to be given as a bolus over 60 bm8 minutes Route: IV; Rate: 1 bolus; Site: right antecubital; 21:48 Follow up: Response: No adverse reaction; IV Status: Completed infusion; IV Intake: bm8 1000ml 22:23 Drug: metroNIDAZOLE IVPB 500 mg 100 ml IVPB at 200 ml/hr once over 30 mins Volume: 100 bm8 ml; Route: IVPB; Rate: 200 ml/hr; Infused Over: 30 mins; Site: right antecubital; 23:30 Follow up: Response: No adverse reaction; IV Status: Completed infusion; IV Intake: bm8 100ml 22:24 Drug: Rocephin IV 1 grams IV at calculated rate once; Given slow IV push per pharmacy bm8 instructions Route: IV; Rate: calculated rate; Site: right antecubital; 23:30 Follow up: Response: No adverse reaction; IV Status: Completed infusion; IV Intake: [id number] Disposition: 23:37 Co-signature as Attending Physician, Jeffery Durant MD I reviewed the patient's care rt provided by the Advanced Practice Provider and agree with the diagnosis and treatment plan. Disposition Summary: 01/03/24 22:42 Discharge Ordered Notes: Location: Home sb4 Problem: new sb4 Symptoms: have improved sb4 Condition: Stable sb4 Diagnosis - Infectious gastroenteritis and colitis, unspecified sb4 Followup: sb4 - With: Emergency Department - When: As needed - Reason: Worsening of condition Discharge Instructions: - Discharge Summary Sheet sb4 - Viral Gastroenteritis, Adult, [id number] sb4 Forms: - Antibiotic Education sb4 - Patient Portal Instructions sb4 - Leadership Thank You Letter sb4 Prescriptions: - Flagyl 500 mg Oral Tablet - take 1 tablet ORAL route every 12 hours for 7 days; 14 tablet; Refills: 0, sb4 Product Selection Permitted - Cipro 500 mg Oral Tablet - take 1 tablet ORAL route every 12 hours for 7 days; 14 tablet; Refills: 0, sb4 Product Selection Permitted - ondansetron 8 mg Oral Tablet,disintegrating - take 1 tablet ORAL route every 8 hours; 10 tablet; Refills: 0, Product sb4 Selection Permitted Signatures: Dispatcher [employer] EDJustine Horton PA-C PA-C sb4 Jeffery Durant MD MD rt Jun Mtz, RN RN bm8 Corrections: (The following items were deleted from the chart) 20:25 20:25 Abdomen Pelvis W Con+CT.RAD.BRZ ordered. EDMS EDMS
[2024-01-04 01:15] VITALS: BP 136/91; TEMP 98.9; O2SAT 100
== END 2024-01-03 23:08 | disposition home or self-care (01) ==
LOC: ER 19:22
DX: A09 Infectious gastroenteritis and colitis, unspecified (principal); Z11.52 Encounter for screening for COVID-19
CPT/HCPCS: 36415; 74177; 80053; 83605; 83690; 85025; 85610; 85730; 87040; 87804; 87811; J0696; J7030; Q9967

== ENCOUNTER 2024-10-06 02:13 | Emergency (ER) | payer SELFPAY ==
[2024-10-06] MEDS ORDERED: LIDOCAINE 1% 20 ML MDV ONE (02:25)
[2024-10-06 03:20] LABS: Absolute Lymphocytes (CBC) 1.5 K/uL (0.7-4.9); Hematocrit 43.3 % (39.6-49.0); Hemoglobin 14.6 g/dL (13.6-17.9); MCH 30.1 pg (27.0-35.0); MCHC 33.8 g/dL (32.0-36.0); MCV 89.1 fL (80-100); MPV 8.6 fL (7.6-11.3); Nucleated RBC Absolute Count 0.0 (0-0); Nucleated Red Blood Cells % 0.0 % (0-0); RBC Red Blood Cell Count 4.86 M/uL (4.33-5.43); White Blood Count 8.20 thou/uL (4.3-10.9)
[2024-10-06 03:28] LABS: METHAMPHETAM POSITIVE (NEGATIVE); THC Cannibis POSITIVE (NEGATIVE)
[2024-10-06 03:30] LABS: ALT/SGPT 20 U/L (16-61); AST/SGOT 15 U/L (15-37); Albumin 3.9 g/dL (3.4-5.0); Albumin/Globulin Ratio 1.2 (1.1-1.8); Alkaline Phosphatase 44 U/L (45-117); Anion Gap 7.5 mEq/L (5.0-15.0); BUN Blood Urea Nitrogen 9 mg/dL (7-18); Globulin 3.3 g/dL (2.3-3.5); Glucose Level 93 mg/dL (74-106); Lipase 17 U/L (13-75); Potassium 3.5 mEq/L (3.5-5.1)
--- NOTE | 2024-10-06 04:41 | ER ---
Nurse's Notes [facility] Name: Jun Almaraz Age: 29 yrs Sex: Male : 1995 Arrival Date: 10/06/2024 Time: 02:13 Bed 20 Private MD: Diagnosis: Suicide attempt Presentation: 10/06 02:15 Chief complaint: Patient states: STATES HE IS NOT GETTING ALONG VERY WELL WITH HIS [facility] PARENTS AND HAD A LOT TO DRINK TONIGHT SO HE IS MAKING BAD DECISIONS. STATES HE CUT HIS LEFT ARM TRYING TO KILL HIMSELF. HE LEFT HOME AND POLICE FOUND HIM 2 HOURS LATER IN THE [place]. Coronavirus screen: At this time, the client does not indicate any symptoms associated with coronavirus-19. Ebola Screen: No symptoms or risks identified at this time. Initial Sepsis Screen: Does the patient meet any 2 criteria? HR > 90 bpm. Yes Does the patient have a suspected source of infection? No. Patient's initial sepsis screen is negative. Risk Assessment: Do you want to hurt yourself or someone else? Patient reports desire/thoughts of hurting themselves or someone else. Provider notified. Onset of symptoms was October 06, 2024 at 02:34. 02:15 Method Of Arrival: EMS: [facility] 02:15 Acuity: LISA 2 jj7 Triage Assessment: 02:15 General: Appears in no apparent distress. comfortable, unkempt, Behavior is calm, jj7 cooperative, appropriate for age. Pain: Denies pain. EENT: No deficits noted. Neuro: No deficits noted. Level of Consciousness is awake, alert, obeys commands, Oriented to person, place, time, situation, Appropriate for age. Respiratory: No deficits noted. Airway is patent Respiratory effort is even, unlabored, Respiratory pattern is regular, symmetrical. GI: No deficits noted. : No deficits noted. Derm: Skin LACERATION TO LEFT ARM Reports HX OF CUTTING. HEALED CUTS ALL OVER BODY. Historical: - Allergies: 02:35 No Known Allergies; jj7 - PMHx: 02:35 None; jj7 - PSHx: 02:35 None; jj7 - Immunization history:: Adult Immunizations not up to date. - Infectious Disease History:: Denies. - Social history:: Smoking status: Patient reports the use of cigarette tobacco products, smokes one pack cigarettes per day. Patient uses alcohol, weekly. patient/guardian reports recent binge of alcohol consumption. Patient/guardian denies using street drugs. Screenin:20 [facility] ED Fall Risk Assessment (Adult) History of falling in the last 3 months, ha1 including since admission No falls in past 3 months (0 pts) Confusion or Disorientation No (0 pts) Intoxicated or Sedated No (0 pts) Impaired Gait No (0 pts) Mobility Assist Device Used No (0 pt) Altered Elimination No (0 pt) Score/Fall Risk Level 0 - 2 = Low Risk Oriented to surroundings, Maintained a safe environment, Educated pt \\T\\ family on fall prevention, incl call for assistance when getting out of bed, Assessed \\T\\ reinforced patient's understanding of fall precautions, Hourly rounding (assess needs \\T\\ fall precautionary measures) done. Abuse screen: Denies threats or abuse. Denies injuries from another. Nutritional screening: No deficits noted. Tuberculosis screening: No symptoms or risk factors identified. Assessment: 02:20 General: Appears uncomfortable, slender, Behavior is calm, cooperative. Pain: Denies cc6 pain. Neuro: Level of Consciousness is awake, alert, obeys commands, Oriented to person, place, time, situation. Cardiovascular: Patient's skin is warm and dry. Respiratory: Airway is patent is compromised Respiratory effort is even, unlabored, Respiratory pattern is regular, symmetrical. Injury Description: Laceration sustained to palmar aspect of left forearm. 03:30 General: PATIENT STATES " I AM READY TO GO, AND NO BODY WILL STOP ME." WALKING OUT OF ha1 THE ROOM, ATTEMPTING TO LEAVE, EXPLAINED PATIENT COULD NOT LEAVE DUE TO HENRIK. PATIENT STATES " I AM LEAVING NO MATTER WHAT." CODE SUZIE WAS CALLED ANB SECURITY WAS NOTIFIED . 03:31 Reassessment: patient prosper. ha1 Psych: 02:20 [place] Suicide Severity Screening: In the past month, have you wished you were ha1 or wished you could go to sleep and not wake up? Patient responds "yes." "In the past month, have you actually had any thoughts of killing yourself?" Patient responds "yes." "In your lifetime, have you ever done anything, started to do anything, or prepared to do anything to end your life?" Patient responds "no.". Subjective: Patient's mood is sad. Objective: Patient is uncooperative. Interventions: Removed personal items and placed in bag. Patient placed in hospital gown. Searched person for dangerous items. Urine collected and sent for urine drug test. Safety Checks: Personal items have been removed. Door is open. Patient uses of liquor. Commitment: Patient will be an involuntary commitment. Vital Signs: 02:15 BP 130 / 118; Pulse 112; Resp 17; Temp 98.8; Pulse Ox 97% ; Weight 61.23 kg; Height 5 [facility] ft. 6 in. ; Pain 0/10; 02:20 BP 130 / 118; Pulse 116; Resp 16; Temp 98.8(O); Pulse Ox 96% on R/A; ha1 03:25 BP 130 / 82; Pulse 80; Resp 16; Pulse Ox 97% on R/A; cc6 02:15 Body Mass Index 21.79 (61.23 kg, 167.64 cm) [facility] 02:15 Pain Scale: Adult [facility] ED Course: 02:15 Arm band placed on right wrist. Patient placed in an exam room, on a stretcher. j7 02:20 Patient arrived in ED. rv1 02:20 Patient has correct armband on for positive identification. Bed in low position. Call [facility] light in reach. Side rails up X 1. 02:20 Provided Education on: PLAN OF CARE . ha1 02:31 Sage Kaufman MD is Attending Physician. tw7 02:34 Triage completed. 7 02:34 Akua Cook, [place] is Primary Nurse. ha1 02:57 CK Sent. cc6 02:57 ETOH Level Sent. cc6 02:57 Salicylate Sent. cc6 02:57 UDS Sent. cc6 02:57 Tylenol Level Sent. cc6 02:57 CBC with Diff Sent. cc6 02:57 CMP Sent. cc6 02:57 Lipase Sent. cc6 02:57 Inserted saline lock: 18 gauge in right antecubital area, using aseptic technique. cc6 Blood collected. Flushed with 10 mL NS. 03:25 Wrist Left (2 View) XRAY In Process Unspecified. EDMS 03:25 Forearm Left XRAY In Process Unspecified. EDMS 03:30 No provider procedures requiring assistance completed. IV discontinued, intact, ha1 bleeding controlled, No redness/swelling at site. Pressure dressing applied. 03:35 [place] [address]. rv1 06:11 Primary Nurse role handed off by Akua Cook RN ha1 Administered Medications: 02:59 Not Given (Patient Refused): tetanus-diphtheria toxoid (PF) 0.5 ml IM once; as a single cc6 dose Medication: 04:00 VIS not applicable for this client. ha1 Outcome: 03:30 Eloped after seeing physician ha1 03:31 Patient left the ED. ha1 03:31 Patient left the ED. ha1 Signatures: Dispatcher [employer] EDMS Akua Cook RN RN ha1 Ruslan Vazqeuz RN RN Natividad Loya rv1 Emi Paz RN RN cc6 Sage Kaufman MD MD tw7 Corrections: (The following items were deleted from the chart) 03:24 02:20 BP 130 / 118; Pulse 116bpm; Resp 16bpm; Pulse Ox 96% RA; cc6 cc6 03:34 02:20 BP 130 / 118; Pulse 116bpm; Resp 16bpm; Pulse Ox 96% RA; Temp 98.8F Oral; cc6 ha1 06:20 04:40 Patient left the ED. ha1 ha1 06:22 06:22 Patient left the ED. ha1 ha1
--- NOTE | 2024-10-06 05:32 | RAD REPORT ---
EXAM: XR Left Wrist, 2 Views CLINICAL HISTORY: Lac TECHNIQUE: Frontal and lateral views of the left wrist. COMPARISON: No relevant prior studies available. FINDINGS: Bones/joints: Unremarkable. No acute fracture. No dislocation. Soft tissues: Unremarkable. No radiopaque foreign body. IMPRESSION: No acute fracture or radiopaque foreign body. Electronically signed by: Kenia Kaiser MD 10/06/2024 04:00 AM CDT RP Due to temporary technical issues with the [employer] reporting system, reports are being kassie d by the in-house radiologist without review as a courtesy to ensure prompt reporting the interpreting radiologist is fully responsible for the content of the report. Transcribed Date/Time: 10/06/2024 5:32 AM
--- NOTE | 2024-10-06 05:32 | RAD REPORT ---
EXAM: XR Left Forearm, 2 Views CLINICAL HISTORY: ANIMAL BITE TECHNIQUE: Frontal and lateral views of the left forearm. COMPARISON: No relevant prior studies available. FINDINGS: Bones/joints: Unremarkable. No acute fracture. No dislocation. Soft tissues: Unremarkable. No radiopaque foreign body. IMPRESSION: No acute fracture or radiopaque foreign body. Electronically signed by: Kenia Kaiser MD 10/06/2024 04:01 AM CDT RP Due to temporary technical issues with the [employer] reporting system, reports are being kassie d by the in-house radiologist without review as a courtesy to ensure prompt reporting the interpreting radiologist is fully responsible for the content of the report. Transcribed Date/Time: 10/06/2024 5:31 AM
--- NOTE | 2024-10-06 06:22 | EDPHYS ---
Physician Documentation [facility] Name: Jun Almaraz Age: 29 yrs Sex: Male : 1995 Arrival Date: 10/06/2024 Time: 02:13 Bed 20 Private MD: ED Physician Sage Kaufman HPI: 10/06 04:45 This 29 yrs old Male presents to ER via EMS with complaints of Psych Problem. tw7 04:45 29-year-old male with a past history of alcohol abuse, depression, substance abuse is tw7 brought in by EMS for further evaluation of laceration and suicide ideation. Patient reports that he lives with his parents and that he hates his life, he hates living with his parents but because of financial circumstances he is unable to move out of his parents house. He admits to drinking multiple alcoholic beverages last night 5 beers. Says that he was depressed and sad so he cut his forearm with scissors. Says that he is suicidal. Denies taking anything to harm himself. He is otherwise not medical complaint he denies chest pain, shortness of breath, abdominal pain nausea or vomiting. Denies auditory or visual hallucinations.. Historical: - Allergies: 02:35 No Known Allergies; jj7 - PMHx: 02:35 None; jj7 - PSHx: 02:35 None; jj7 - Immunization history:: Adult Immunizations not up to date. - Infectious Disease History:: Denies. - Social history:: Smoking status: Patient reports the use of cigarette tobacco products, smokes one pack cigarettes per day. Patient uses alcohol, weekly. patient/guardian reports recent binge of alcohol consumption. Patient/guardian denies using street drugs. ROS: 04:52 Constitutional: Negative for fever, chills, and weight loss, Eyes: Negative for injury, tw7 pain, redness, and discharge, ENT: Negative for injury, pain, and discharge, Neck: Negative for injury, pain, and swelling, Cardiovascular: Negative for chest pain, palpitations, and edema, Respiratory: Negative for shortness of breath, cough, wheezing, and pleuritic chest pain, Abdomen/GI: Negative for abdominal pain, nausea, vomiting, diarrhea, and constipation, Back: Negative for injury and pain, Neuro: Negative for headache, weakness, numbness, tingling, and seizure, 04:52 Psych: Positive for depression, alcohol dependence, suicide gesture, suicidal ideation, Exam: 04:53 Musculoskeletal/extremity: Extremities: noted in the left arm: laceration, 10cm Left tw7 Forearm Laceration. Neurovascularly intact distal to injury. , Vital Signs: 02:15 BP 130 / 118; Pulse 112; Resp 17; Temp 98.8; Pulse Ox 97% ; Weight 61.23 kg; Height 5 jj7 ft. 6 in. ; Pain 0/10; 02:20 BP 130 / 118; Pulse 116; Resp 16; Temp 98.8(O); Pulse Ox 96% on R/A; ha1 03:25 BP 130 / 82; Pulse 80; Resp 16; Pulse Ox 97% on R/A; cc6 02:15 Body Mass Index 21.79 (61.23 kg, 167.64 cm) [facility] 02:15 Pain Scale: Adult [facility] MDM: 04:28 Medical Screening Exam initiated tw7 04:54 Differential diagnosis: drug withdrawal. acute psychotic break, depression, psychosis tw7 secondary to non-compliance. Data reviewed: vital signs, nurses notes. ED course: 29-year-old male was brought here by police under emergency penitentiary order for further evaluation of suicidal ideation and suicidal gesture. I evaluated the patient, ordered x-rays of the extremities, basic lab work including ingestion labs, alcohol level UDS.. 04:57 ED course: Lab work performed reveals normal electrolytes. Normal kidney function. UDS tw7 is positive for meth and THC. Alcohol level is 168. No leukocytosis. Normal hemoglobin. Negative salicylate level. Negative Tylenol level. X-ray results are still pending.. 04:57 ED course: Unfortunately I was informed by the nurse that got up and ran out of the [facility] emergency department. Patient had a sitter at bedside. A code george was called and security was alerted and followed the patient but unfortunately the patient left the campus. The police department was called to bring the patient back. I am concerned because I believe patient is a danger to himself or others and that he is suicidal gesture of cutting his wrists was very concerning. Psychiatry was consulted, patient eloped from the emergency department. Police have been notified. Patient is a danger to himself or others. Patient is high risk for suicide. Patient patient has laceration that requires repair and It is high risk to get infected.. 10/06 02:33 Order name: CBC with Diff; Complete Time: 04:56 10/06 02:33 Order name: CMP; Complete Time: 04:56 10/06 02:33 Order name: Lipase; Complete Time: 04:56 10/06 02:33 Order name: Tylenol Level; Complete Time: 04:56 10/06 02:33 Order name: Salicylate; Complete Time: 04:56 10/06 02:33 Order name: UDS; Complete Time: 04:56 10/06 02:33 Order name: ETOH Level; Complete Time: 04:56 10/06 02:33 Order name: CK; Complete Time: 04:56 10/06 02:34 Order name: Wrist Left (2 View) XRAY 10/06 02:34 Order name: Forearm Left XRAY 10/06 02:33 Order name: IV Saline Lock; Complete Time: 02:35 10/06 02:33 Order name: Labs collected and sent; Complete Time: 02:35 10/06 02:35 Order name: EKG - Nurse/Tech; Complete Time: 02:57 ha1 Administered Medications: 02:59 Not Given (Patient Refused): tetanus-diphtheria toxoid (PF) 0.5 ml IM once; as a single cc6 dose Disposition: 05:01 Chart complete. Disposition Summary: 10/06/24 04:40 Left Against Medical Advice Notes: Location: Home ha1 Condition: Stable ha1 Problem: new Symptoms: are unchanged Diagnosis - Suicide attempt Signatures: Dispatcher [employer] EDMS Akua Cook RN RN ha1 Ruslan Vazquez RN RN jj7 Sage Kaufman MD MD tw7 Emi Paz RN cc6 Corrections: (The following items were deleted from the chart) 02:33 02:33 CBC+H.LAB.BRZ ordered. EDMS EDMS 02:33 02:33 COMPREHENSIVE METABOLIC PANEL+C.LAB.BRZ ordered. EDMS EDMS 02:33 02:33 LIPASE+C.LAB.BRZ ordered. EDMS EDMS 02:33 02:33 ACETAMINOPHEN+C.LAB.BRZ ordered. EDMS EDMS 02:33 02:33 SALICYLATE+C.LAB.BRZ ordered. EDMS EDMS 02:33 02:33 URINE DRUG SCREEN+UC.LAB.BRZ ordered. EDMS EDMS 02:33 02:33 ETHANOL+C.LAB.BRZ ordered. EDMS EDMS 02:33 02:33 CREATINE PHOSPHOKINASE+C.LAB.BRZ ordered. EDMS EDMS 04:52 04:45 29-year-old male with a past history of alcohol abuse, depression, substance tw7 abuse is brought in by EMS for further evaluation of laceration and suicide ideation. Patient reports that he lives with his parents and that he hates his life. tw7
[2024-10-06 08:59] VITALS: TEMP 98.8
[2024-10-06 12:26] VITALS: BP 130/82; O2SAT 97
== END 2024-10-06 06:22 | disposition left against medical advice (07) ==
LOC: ER 02:13
DX: S51.812A Laceration without foreign body of left forearm, initial encounter (principal); X78.8XXA Intentional self-harm by other sharp object, initial encounter; F10.20 Alcohol dependence, uncomplicated; F17.210 Nicotine dependence, cigarettes, uncomplicated
CPT/HCPCS: 36415; 80053; 80143; 80179; 80307; 82077; 82550; 83690; 85025; 93005; J2003